=== PATIENT | female | born 1965 | race Caucasian/White ===

== ENCOUNTER 2018-11-15 02:24 | Emergency (ER) | payer MEDICARE, BC, OTHER ==
[~2018-11-15] VITALS: Ht 162.6 cm; Wt 127.0 kg
[2018-11-15] MEDS ORDERED: LIDOCAINE 1% INJ 20 ML 20 ML VIAL ONE (02:29)
--- NOTE | 2018-11-15 02:38 | ED Upper Extremity ---
General Chief Complaint: Laceration Stated Complaint: LACERATION Source: patient, EMS Exam Limitations: clinical condition History of Present Illness Date Seen by Provider: Nov 15, 2018 Time Seen by Provider: 02:19 Initial Comments Patient presents to ER by EMS with chief complaint that she been drinking tonight about a half fifth of vodka and some peppermint schnapps and she went to the kitchen because she was hungry and somehow she ended up on the floor holding her wrist where there is bleeding coming from it. EMS her Lang as there is probably about 100 - 150 cc of blood at the scene and she only for her wrist on a cabinet handle on her way down and she fell. Patient denies using any blood thinners but she does have blood pressure medicines and depression medicines she takes. She denies striking her head or loss of consciousness. Allergies and Home Medications Allergies Coded Allergies: No Known Drug Allergies (Unverified , 11/15/18) Patient Home Medication List Home Medication List Reviewed: Yes Review of Systems Constitutional: No chills, No diaphoresis EENTM: No hearing loss, No ear pain, No blurred vision Respiratory: No cough, No short of breath Cardiovascular: No chest pain, No edema Gastrointestinal: No abdominal pain, No constipation, No diarrhea Genitourinary: No discharge, No dysuria : No Musculoskeletal: No back pain, No joint pain Skin: see HPI Past Cntlgje-Vdacuv-Cbebgp Hx Patient Social History Alcohol Use: Regular Use Alcohol Beverage of Choice: Vodka Recreational Drug Use: No Recent Foreign Travel: No Contact w/Someone Who Travel: No Physical Exam Vital Signs Vital Signs - First Documented 11/15/18 02:28 Temp 98.7 Pulse 89 Resp 14 B/P (MAP) 117/81 (93) Pulse Ox 98 O2 Delivery Room Air Capillary Refill : Less Than 3 Seconds Height, Weight, BMI Height: '" Weight: lbs. oz. kg; BMI Method: General Appearance: WD/WN, mild distress HEENT: normal ENT inspection, pharynx normal, other (negative for hemotympanum , townsend signs or raccoon eyes. Atraumatic head) Cardiovascular: normal peripheral pulses, regular rate, rhythm, no edema Respiratory: chest non-tender, lungs clear, normal breath sounds Gastrointestinal: normal bowel sounds, non tender, soft Wrist: Yes normal ROM Hand: normal inspection, non-tender, no evidence of injury, normal ROM, Bilateral Neurologic/Psychiatric: alert, normal mood/affect, oriented x 3 Skin: other (2 x 3 cm rectangular flap on the anterior wrist of the left hand with a flap going from radial towards the ulnar side and attached on the ulnar side. Subcutaneous tissue exposed. Hemostatic. Small hematoma.) Procedures/Interventions Wound Location: Upper Extremities Other Wound Location Left anterior distal wrist Wound Length (cm): 8 Wound's Depth, Shape: sub Q (rectangular flap 3 x 2 x 3) Wound Explored: clean Irrigated w/ Saline (ccs): 150 Betadine Prep?: No (chlorhexidine) Anesthesia: 1% Lidocaine Volume Anesthetic (ccs): 12 Wound Debrided: minimal Suture: Prolene Suture Size: 4-0 Number of Sutures: 6 Layer Closure?: 1 Sterile Dressing Applied?: Yes Progress Patient's wound was cleaned thoroughly using chlorhexidine soap water and gauze. We then allowed to soak for about 10 minutes. We then infiltrated the wound edges with 1% lidocaine no epi. We infiltrated the edges of the flap as well. When the patient was numb we then took the skin edges approximated them and stitched 2 simple interrupted stitches on either side of the 3 cm long flap for total of 4 stitches and then 2 corner stitches on the short side. The flap was well approximated, hemostatic and clean at the time I left the wound. Triple antibiotic ointment and gauze were applied over the wound. Patient tolerated procedure well. Progress/Results/Core Measures Results/Orders My Orders Orders - MALISSA TILLMAN Lidocaine 1% Inj 20 Ml (Xylocaine 1% Inj (11/15/18 02:29) Dipht,Pertuss(Acell),Tet Adult (Boostrix (11/15/18 02:55) Medications Given in ED Current Medications Medications Dose Ordered Sig/Charlee Route Start Time Stop Time Status Last Admin Dose Admin Diphtheria/ Tetanus/Acell Pertussis 0.5 ml STK-MED ONCE IM 11/15/18 02:55 11/15/18 02:58 DC 11/15/18 02:58 0.5 ML Lidocaine HCl 20 ml STK-MED ONCE .ROUTE 11/15/18 02:29 11/15/18 02:33 DC 11/15/18 02:50 20 ML Vital Signs/I&O 11/15/18 02:28 Temp 98.7 Pulse 89 Resp 14 B/P (MAP) 117/81 (93) Pulse Ox 98 O2 Delivery Room Air Progress Progress Note : Time: 02:36 Progress Note Plan to give her a tetanus shot, cleaned up with chlorhexidine soap water numb it up using lidocaine and then stitches. Her heads atraumatic so we'll just wanted a home with family and be on observation for now. Departure Impression Primary Impression: Laceration of left wrist without complication Qualified Codes: S61.512A - Laceration without foreign body of left wrist, initial encounter Additional Impression: Alcohol intoxication Qualified Codes: F10.920 - Alcohol use, unspecified with intoxication, uncomplicated Disposition: 01 HOME, SELF-CARE Condition: Improved Departure-Patient Inst. Decision time for Depature: 03:06 Referrals: ZENA ACEVEDO DO (PCP) Primary Care Physician Patient Instructions: Laceration Repair With Stitches (DC) Add. Discharge Instructions: Keep the wound clean with regular soap and water only. Replaced the dressing at least daily. Return to the ER or go to your primary care doctor in 10-14 days to have the stitches out. Use Tylenol and/or ice to control the pain in your hand. If you start to have discharge, increased swelling or redness or other worrisome signs then you should return to the doctor for reevaluation. 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 All discharge instructions reviewed with patient and/or family. Voiced understanding. Scripts Sulfamethoxazole/Trimethoprim (Bactrim Ds Tablet) 1 Each Tablet 1 EACH PO BID for 5 Days, #10 TAB 0 Refills Prov: MALISAS TILLMAN 11/15/18 MALISSA TILLMAN Nov 15, 2018 02:37
[2018-11-15] MEDS ORDERED: TETANUS,DIPTH,PERTUSS P/F (BOOSTRIX) 0.5 ML VIAL IM ONE (02:55)
[2018-11-15 03:09] VITALS: BP 119/67
[2018-11-15] MEDS ORDERED: SULF1TAB35 PO (03:09)
== END 2018-11-15 03:35 | disposition home or self-care (01) ==
LOC: EDUNIT# 02:24 → ER 02:26
DX: S61.512A Laceration without foreign body of left wrist, initial encounter (principal); F10.129 Alcohol abuse with intoxication, unspecified; Z23 Encounter for immunization; W19.XXXA Unspecified fall, initial encounter; Y92.000 Kitchen of unspecified non-institutional (private) residence as the place of occurrence of the external cause
CPT/HCPCS: 12001; 90715